=== PATIENT | female | born 1950 | race African-American/Black ===

== ENCOUNTER → 2017-01-13 | Outpatient (CLI) | payer OTHER ==
[~2017-01-13] MED LIST: ALEVE220 M2 PO; ALLEGRA ALLERG180 MG PO; BAYER CHEWABLE81 MG PO; BONINE25 MG PO; CENTRUM SILVER1 EAC3 PO; ERGOCALCIF50000 UNIT PO; FENOFIBRATE145 M1 PO; IRON PO; LOSARTAN POTASS50 MG; LOSARTAN POTASS50 MG PO; METFORMIN HCL500 MG PO; OMEGA 3 PO; PROTONIX40 MG PO; SIMVASTATIN10 MG PO; SYSTANE GEL EYE10 ML RIGHT EYE; VITAMIN D50000 UNI4 PO
== END | disposition home or self-care (01) ==
LOC: AMB 14:44
PROC: 03BT0ZX Excision of Left Temporal Artery, Open Approach, Diagnostic (ICD-10-PCS; principal; 2017-01-13)
DX: R51 Headache (principal); R70.0 Elevated erythrocyte sedimentation rate
CPT/HCPCS: 88305; 88313

== ENCOUNTER → 2017-02-17 | Outpatient (CLI) | payer OTHER ==
[~2017-02-17] MED LIST changes: +COZAAR100 MG PO; +FOLBIC RF TABL1 EACH PO; +GLUCOPHAGE500 MG PO
== END | disposition home or self-care (01) ==
LOC: AMB 11:49
PROC: 03BS0ZX Excision of Right Temporal Artery, Open Approach, Diagnostic (ICD-10-PCS; principal; 2017-02-17)
DX: R51 Headache (principal)
CPT/HCPCS: 88305; 88313

== ENCOUNTER → 2017-04-09 | Outpatient (CLI) | payer OTHER | END | disposition home or self-care (01) | LOC: RES 13:27 | DX: J98.4 Other disorders of lung (principal) | CPT/HCPCS: 94060; 94726; 94729 ==